=== PATIENT | male | born 1995 | race Caucasian/White ===

== ENCOUNTER 2018-01-18 20:53 | Emergency (ER) | payer BC ==
[~2018-01-18] VITALS: Ht 175.3 cm; Wt 65.0 kg
[2018-01-18 21:21] VITALS: BP 137/83; PULSE 112; RESP 18; TEMP 98.6; O2SAT 97
[2018-01-18] MEDS ORDERED: SODIUM CHLORIDE 0.9% FLUSH 10 ML FLUSH IVF PRN (22:15)
[2018-01-18] MEDS ORDERED: ASPIRIN 81 MG CHEW TAB PO ONE (22:15)
[2018-01-18 22:35] LABS: AUTOMATED NEUTROPHIL # 9.7 TH/MM3 (1.8-7.7); BASOPHIL % 0.3 % (0.0-2.0); EOSINOPHIL % 0.4 % (0.0-4.0); HEMATOCRIT 40.4 % (39.0-51.0); HEMOGLOBIN 14.2 GM/DL (13.0-17.0); LYMPH % 17.3 % (9.0-44.0); LYMPHOCYTE # 2.3 TH/MM3 (1.0-4.8); MEAN CELL VOLUME 88.6 FL (80.0-100.0); MEAN CORPUSCULAR HEMOGLOBIN 31.2 PG (27.0-34.0); MEAN CORPUSCULAR HGB CONC 35.2 % (32.0-36.0); MEAN PLATELET VOLUME 8.9 FL (7.0-11.0); MONO % 7.7 % (0.0-8.0); NEUT % 74.3 % (16.0-70.0); PLATELET COUNT 247 TH/MM3 (150-450); RED BLOOD COUNT 4.56 MIL/MM3 (4.50-5.90); RED CELL DISTRIBUTION WIDTH 12.9 % (11.6-17.2)
[2018-01-18 22:50] LABS: INTERNATIONAL NORMALIZED RATIO 1.2 RATIO
--- NOTE | 2018-01-18 22:53 | RADRPT ---
EXAM DATE/TIME: 01/18/2018 22:33 [place] COMPARISON: No previous studies available for comparison. INDICATIONS : Chest pains, palpitations. MEDICAL HISTORY : None. SURGICAL HISTORY : None. ENCOUNTER: Initial ACUITY: 1 day PAIN SCORE: 7/10 LOCATION: Bilateral chest FINDINGS: PA and lateral views of the chest demonstrate a normal-sized cardiac silhouette. There is no effusion , consolidation, or pneumothorax. The bones and soft tissues demonstrate no acute abnormality. There is an azygous fissure. CONCLUSION: No acute cardiopulmonary abnormality is identified. Dontae Flores MD on January 18, 2018 at 22:51 Board Certified Radiologist. This report was verified electronically.
[2018-01-18 23:21] LABS: BICARBONATE 27.6 MEQ/L (21.0-32.0); BLOOD UREA NITROGEN 10 MG/DL (7-18); CALCIUM 8.7 MG/DL (8.5-10.1); CHLORIDE 106 MEQ/L (98-107); CREATININE 0.75 MG/DL (0.60-1.30); GLOMERULAR FILTRATION RATE 130 ML/MIN (>89); GLUCOSE,RANDOM 89 MG/DL (74-106); MAGNESIUM 1.8 MG/DL (1.5-2.5); SODIUM (NA) 141 MEQ/L (136-145)
[2018-01-18 23:25] LABS: TROPONIN I LESS THAN 0.02 NG/ML (0.02-0.05)
[2018-01-18] MEDS ORDERED: SODIUM CHLOR 0.9% 1000 ML INJ 1,000 ML IV ONE (23:45)
[2018-01-19 00:22] VITALS: BP 140/87; PULSE 99; RESP 18; O2SAT 99
--- NOTE | 2018-01-19 01:10 | PD ---
HPI . Chest pain Chief Complaint: Chest Pain Time Seen by Provider: 23:32 Travel History International Travel<30 days: No Contact w/Intl Traveler<30days: No Traveled to known affect area: No History of Present Illness HPI 22-year-old male with a history of paroxysmal tachycardia since the 10 years of age, presents with recurrence of same which was precipitated by patient running across the street at a traffic light. Patient states that minimal exertion is usually his trigger for same. Patient does note his symptoms began worse lately patient has recently been put on a cardiac Holter monitor which triggered her reading several times in the past week. 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 Patient is visiting [facility] vacation. Patient denies any weight loss night sweats fever chills sweats, rashes, leg pain or swelling, patient utilizes normal mechanisms of sitting with his head between his knees holding his breath , and carotid massage which eventually worked. Patient notes that he usually works much quicker on a regular basis and was concerned that it was lasting for longer than his usual previous episodes. Patient presents asymptomatic at triage. 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) Cardiovascular Problems: Yes Diminished Hearing: No Tetanus Vaccination: < 5 Years Influenza Vaccination: No Past Surgical History Oral Surgery: Yes (wisdom teeth) Social History Alcohol Use: Yes (weekends) Tobacco Use: No Substance Use: No Allergies-Medications (Allergen,Severity, Reaction): Coded Allergies: No Known Allergies (Unverified , 01/18/18) Reported Meds & Prescriptions Reported Meds & Active Scripts Active No Active Prescriptions or Reported Medications Narrative Medication Allergies medications reviewed Review of Systems Except as stated in HPI: all other systems reviewed are Neg General / Constitutional: No: Fever Eyes: No: Visual changes HENT: No: Headaches Cardiovascular: Positive: Chest Pain or Discomfort, Palpitations, Tachycardia, No: Irregular Rhythm, Diaphoresis, Syncope, Dyspnea on exertion, Varicosities, Edema, Cyanosis, Claudication Respiratory: No: Cough, Shortness of Breath, Wheezing, Sneezing, Orthopnea, Hemoptysis, Stridor, Night Sweats, Pleuritic Pain Gastrointestinal: No: Abdominal Pain Genitourinary: No: Dysuria Musculoskeletal: No: Pain Skin: No Rash Neurologic: No: Weakness Psychiatric: No: Depression Endocrine: No: Polydipsia Hematologic/Lymphatic: No: Easy Bruising Physical Exam Narrative GENERAL: Awake and alert, no acute distress. Vital signs afebrile normal and stable. SKIN: Warm and dry. No diaphoresis cyanosis pallor, no rashes HEAD: Atraumatic. Normocephalic. EYES: Pupils equal and round. No scleral icterus. No injection or drainage. ENT: No nasal bleeding or discharge. Mucous membranes pink and moist. NECK: Trachea midline. No JVD. Supple nontender full range of motion, no thyroid mass or goiter palpable CARDIOVASCULAR: Regular rate and rhythm. S1-S2 no murmurs rubs gallops RESPIRATORY: No accessory muscle use. Clear to auscultation. Breath sounds equal bilaterally. GASTROINTESTINAL: Abdomen soft, non-tender, nondistended. Hepatic and splenic margins not palpable. MUSCULOSKELETAL: Extremities without clubbing, cyanosis, or edema. No obvious deformities. NEUROLOGICAL: Awake and alert. No obvious focal deficits. PSYCHIATRIC: Appropriate mood and affect; insight and judgment normal. Data Data Last Documented VS Vital Signs Date Time Temp Pulse Resp B/P (MAP) Pulse Ox O2 Delivery O2 Flow Rate FiO2 01/19/18 00:22 99 18 140/87 (104) 99 Room Air 01/18/18 21:21 98.6 Orders Orders Electrocardiogram (01/18/18 ) Basic Metabolic Panel (Bmp) (01/18/18 22:09) Ckmb (Isoenzyme) Profile (01/18/18 22:09) Complete Blood Count With Diff (01/18/18 22:09) Magnesium (Mg) (01/18/18 22:09) Prothrombin Time / Inr (Pt) (01/18/18 22:09) Act Partial Throm Time (Ptt) (01/18/18 22:09) Troponin I (01/18/18 22:09) Ecg Monitoring (01/18/18 22:09) Bilateral Bp Monitoring (01/18/18 22:09) Iv Access Insert/Monitor (01/18/18 22:09) Oximetry (01/18/18 22:09) Aspirin Chew (Aspirin Chew) (01/18/18 22:15) Sodium Chloride 0.9% Flush (Ns Flush) (01/18/18 22:15) Chest, Pa & Lat (01/18/18 22:09) CKMB (01/18/18 22:10) CKMB% (01/18/18 22:10) Thyroid Stimulating Hormone (01/18/18 23:33) Sodium Chlor 0.9% 1000 Ml Inj (Ns 1000 M (01/18/18 23:45) Orthostatic Vital Signs (01/19/18 01:03) Labs Laboratory Tests Test 01/18/18 22:10 White Blood Count 13.0 TH/MM3 Red Blood Count 4.56 MIL/MM3 Hemoglobin 14.2 GM/DL Hematocrit 40.4 % Mean Corpuscular Volume 88.6 FL Mean Corpuscular Hemoglobin 31.2 PG Mean Corpuscular Hemoglobin Concent 35.2 % Red Cell Distribution Width 12.9 % Platelet Count 247 TH/MM3 Mean Platelet Volume 8.9 FL Neutrophils (%) (Auto) 74.3 % Lymphocytes (%) (Auto) 17.3 % Monocytes (%) (Auto) 7.7 % Eosinophils (%) (Auto) 0.4 % Basophils (%) (Auto) 0.3 % Neutrophils # (Auto) 9.7 TH/MM3 Lymphocytes # (Auto) 2.3 TH/MM3 Monocytes # (Auto) 1.0 TH/MM3 Eosinophils # (Auto) 0.0 TH/MM3 Basophils # (Auto) 0.0 TH/MM3 CBC Comment DIFF FINAL Differential Comment Prothrombin Time 12.0 SEC Prothromb Time International Ratio 1.2 RATIO Activated Partial Thromboplast Time 22.3 SEC Blood Urea Nitrogen 10 MG/DL Creatinine 0.75 MG/DL Random Glucose 89 MG/DL Calcium Level 8.7 MG/DL Magnesium Level 1.8 MG/DL Sodium Level 141 MEQ/L Potassium Level 4.1 MEQ/L Chloride Level 106 MEQ/L Carbon Dioxide Level 27.6 MEQ/L Anion Gap 7 MEQ/L Estimat Glomerular Filtration Rate 130 ML/MIN Total Creatine Kinase 109 U/L Creatine Kinase MB 0.8 NG/ML Troponin I LESS THAN 0.02 NG/ML Thyroid Stimulating Hormone 3rd Gen 1.740 uIU/ML MDM Medical Decision Making Medical Screen Exam Complete: Yes Emergency Medical Condition: Yes Medical Record Reviewed: Yes Differential Diagnosis Palpitations, paroxysmal SVT, paroxysmal tachycardia, dehydration Narrative Course Patient's limited examination here, no significant normalities, EKG normal sinus rhythm 84 bpm nonischemic intervals normal. Patient received IV fluids and drink oral fluids/Gatorade, felt greatly improved. Diagnosis Primary Impression: Paroxysmal tachycardia, unspecified Additional Impression: Dehydration Patient Instructions: Dehydration (ED), General Instructions, Heart Palpitations (ED) Additional Instructions: Drink plenty of fluids. Refrain from drinking alcohol or stimulants including caffeinated beverage, coffee, tea, energy drinks. Follow-up with your doctors at [facility]. Return promptly or follow-up with your nearest ER for worsening Scripts No Active Prescriptions or Reported Meds Disposition: 01 DISCHARGE HOME Condition: Stable Aaron Peter MD Jan 19, 2018 01:09
[2018-01-19 01:12] VITALS: BP_SYST 140; BP_SYST 142; BP_DIAS 81; BP_DIAS 83; RESP 18
[2018-01-19 01:13] VITALS: BP 141/95; RESP 18
--- NOTE | 2018-01-19 11:08 | EKG ---
Date Performed: 01/18/2018 Time Performed: 22:24:10 PTAGE: 22 years EKG: Sinus rhythm WITH SINUS ARRHYTHMIA POSSIBLE ARM LEADS REVERSED ATYPICAL ECG NO PREVIOUS TRACING DOCTOR: Stevie Montgomery Interpretating Date/Time 01/19/2018 11:07:41
== END 2018-01-19 01:36 | disposition home or self-care (01) ==
LOC: NEDAMB 20:53
DX: I47.9 Paroxysmal tachycardia, unspecified (principal); E86.0 Dehydration
CPT/HCPCS: 71046; 80048; 82550; 82552; 83735; 84443; 84484; 85025; 85610; 85730; 93005; 96360; 99285; J7030